=== PATIENT | female | born 1970 | race African-American/Black ===

== ENCOUNTER 2022-05-21 11:32 | Inpatient (IN) | payer OTHER, MEDICAID ==
[~2022-05-21] VITALS: Ht 157.5 cm; Wt 93.2 kg
[~2022-05-21 11:32] MED LIST: ALBU18HF2 IH; CARV12.545 MT; LISI2.5T47 MT; LJ2 IVP; MAGN296S73 MT; QUET400T MT; SIMV-43 PO
[2022-05-21] MEDS ORDERED: ASPIRIN 81MG TABLET PO ONE (12:15)
[2022-05-21 12:46] LABS: BASOPHILS % 0.6 % (0.0-2.0); EOSINOPHILS % 3.6 % (0.0-5.0); HEMATOCRIT. 36.2 % (36.0-48.0); HEMOGLOBIN. 11.6 g/dL (12.0-16.0); LYMPHOCYTES % 31.2 % (20.0-50.0); MEAN CORPUSCULAR HEMOGLOBIN 22.9 pg (28.0-32.0); MEAN CORPUSCULAR VOLUME 71.6 fL (81.0-99.0); MONOCYTES % 6.1 % (2.0-8.0); NEUTROPHILS % 58.5 % (40.0-76.0); PLATELET 267 x1000/uL (130-400); RED BLOOD CELL COUNT 5.05 mill/uL (4.2-5.4); RED CELL DISTRIBUTION WIDTH 17.1 % (11.6-14.6)
[2022-05-21] MEDS ORDERED: FUROSEMIDE 40MG/4ML VIAL IVP ONE (13:00)
[2022-05-21 13:10] LABS: CHLORIDE 107 mEq/L (98-107)
[2022-05-21] MEDS: NITROGLYCERIN 0.4MG TABLET SL SL PRN ×2 (13:28→13:29)
[2022-05-21] MEDS ORDERED: AZITHROMYCIN 500MG/250ML 250 ML IV ONE (14:30)
[2022-05-21] MEDS ORDERED: CEFTRIAXONE 1 G PREMIX 50 ML IV ONE (14:30)
[2022-05-21 15:16] LABS: D-DIMER 0.21 mg/L FEU (<0.50); PARTIAL THROMBOPLASTIN TIME 29.7 sec (23.4-31.0); PROTHROMBIN TIME 10.9 sec (9.6-11.0)
[2022-05-21 15:17] LABS: CLARITY URINE CLEAR (CLEAR); COLOR URINE YELLOW (YELLOW); KETONES URINE NEGATIVE (NEGATIVE); LEUKOCYTE ESTERASE URINE NEGATIVE (NEGATIVE); NITRITE URINE NEGATIVE (NEGATIVE); OCCULT BLOOD URINE NEGATIVE (NEGATIVE); PROTEIN URINE NEGATIVE (NEGATIVE); SPECIFIC GRAVITY URINE 1.006 (1.005-1.030); UROBILINOGEN URINE 0.2 E.U./dL (0.2-1.0)
[2022-05-21] MEDS ORDERED: MORPHINE SULFATE 4 MG/ML CPJ (NOT FOR IM USE) IV STA (16:55)
[2022-05-21] MEDS ORDERED: ONDANSETRON HCL 4MG/2ML INJ IV STA (16:55)
[2022-05-21] MEDS ORDERED: CEFTRIAXONE 1 G PREMIX 50 ML IV NR (18:30)
[2022-05-21 20:45] VITALS: BP 168/71
[2022-05-21] MEDS ORDERED: QUETIAPINE FUMARATE 50MG TABLET PO NR (23:30)
[2022-05-21] MEDS: HYDROCODONE/ACETAMINOPHEN 10/325MG TABLET PO PRN (23:53)
[2022-05-22] VITALS: BP 139/74
[2022-05-22 04:00] VITALS: BP 113/58
[2022-05-22] MEDS: ACETAMINOPHEN 325MG TABLET PO PRN ×2 (05:27→11:53)
[2022-05-22 06:57] LABS: CHLORIDE 107 mEq/L (98-107)
[2022-05-22 06:58] LABS: BASOPHILS % 0.3 % (0.0-2.0); EOSINOPHILS % 3.5 % (0.0-5.0); HEMATOCRIT. 33.9 % (36.0-48.0); HEMOGLOBIN. 10.7 g/dL (12.0-16.0); LYMPHOCYTES % 33.4 % (20.0-50.0); MEAN CORPUSCULAR VOLUME 72.6 fL (81.0-99.0); MEAN PLATELET VOLUME 8.1 fl (7.4-10.4); MONOCYTES % 6.6 % (2.0-8.0); NEUTROPHILS % 56.2 % (40.0-76.0); PLATELET 246 x1000/uL (130-400); RED BLOOD CELL COUNT 4.67 mill/uL (4.2-5.4); RED CELL DISTRIBUTION WIDTH 17.3 % (11.6-14.6)
[2022-05-22 07:04] LABS: HDL CHOLESTEROL 67 mg/dL (40-59); LDL CHOLESTEROL 155 mg/dL (5-100)
[2022-05-22 08:00] VITALS: BP 117/57
[2022-05-22] MEDS ORDERED: CARVEDILOL 12.5MG TABLET PO SCH (09:00)
[2022-05-22] MEDS: ENOXAPARIN 30MG/0.3ML SYR SUBCUT SCH ×2 (09:27→20:12)
[2022-05-22] MEDS: HYDROCODONE/ACETAMINOPHEN 10/325MG TABLET PO PRN ×2 (09:27→20:10)
[2022-05-22] MEDS ORDERED: POTASSIUM CHLORIDE 20MEQ TABLET SR PO NR (10:15)
[2022-05-22 12:00] VITALS: BP 119/69
[2022-05-22] MEDS: POTASSIUM CHLORIDE 20MEQ TABLET SR PO SCH (15:25)
[2022-05-22] MEDS: DILTIAZEM HCL 60MG TABLET PO SCH ×2 (15:25→21:20)
[2022-05-22] MEDS: FUROSEMIDE 40MG/4ML VIAL IVP SCH (15:25)
[2022-05-22 16:00] VITALS: BP 126/70
[2022-05-22] MEDS ORDERED: NALOXONE HCL 0.4MG/ML VIAL IV PRN (19:45)
[2022-05-22] MEDS ORDERED: IPRATROPIUM/ALBUTEROL 0.5-3(2.5)MG/3ML NEB HHN PRN (19:45)
[2022-05-22 20:00] VITALS: BP 114/83
[2022-05-22] MEDS: ATORVASTATIN CALCIUM 40MG TABLET PO SCH (20:08)
[2022-05-22] MEDS: QUETIAPINE FUMARATE 50MG TABLET PO SCH (20:09)
[2022-05-23] VITALS: BP 123/70
[2022-05-23 04:00] VITALS: BP 120/69
[2022-05-23] MEDS: DILTIAZEM HCL 60MG TABLET PO SCH ×3 (06:06→21:12)
[2022-05-23 07:58] VITALS: BP 138/67
[2022-05-23] MEDS: FUROSEMIDE 40MG/4ML VIAL IVP SCH (08:39)
[2022-05-23] MEDS: HYDROCODONE/ACETAMINOPHEN 10/325MG TABLET PO PRN ×3 (08:39→21:10)
[2022-05-23] MEDS: POTASSIUM CHLORIDE 20MEQ TABLET SR PO SCH (08:40)
[2022-05-23] MEDS: ENOXAPARIN 30MG/0.3ML SYR SUBCUT SCH ×2 (08:40→21:13)
[2022-05-23] MEDS: ONDANSETRON HCL 4MG/2ML INJ IV PRN (10:13)
[2022-05-23] MEDS: ACETAMINOPHEN 325MG TABLET PO PRN (11:32)
[2022-05-23 11:47] VITALS: BP 132/57
[2022-05-23 16:00] VITALS: BP 133/60
[2022-05-23] MEDS ORDERED: FUROSEMIDE 40MG/4ML VIAL IVP NR (16:45)
[2022-05-23 20:00] VITALS: BP 133/61
[2022-05-23] MEDS: ATORVASTATIN CALCIUM 40MG TABLET PO SCH (21:10)
[2022-05-23] MEDS: QUETIAPINE FUMARATE 50MG TABLET PO SCH (21:11)
[2022-05-24] VITALS: BP 127/58
[2022-05-24 04:00] VITALS: BP 138/66
[2022-05-24] MEDS: DILTIAZEM HCL 60MG TABLET PO SCH ×3 (06:00→20:51)
[2022-05-24 08:00] VITALS: BP 153/63
[2022-05-24 08:06] LABS: BASOPHILS % 0.3 % (0.0-2.0); EOSINOPHILS % 6.5 % (0.0-5.0); HEMATOCRIT. 40.1 % (36.0-48.0); LYMPHOCYTES % 39.9 % (20.0-50.0); MEAN CORPUSCULAR HEMOGLOBIN 23.4 pg (28.0-32.0); MEAN CORPUSCULAR VOLUME 72.4 fL (81.0-99.0); MEAN PLATELET VOLUME 7.8 fl (7.4-10.4); MONOCYTES % 8.5 % (2.0-8.0); NEUTROPHILS % 44.8 % (40.0-76.0); PLATELET 299 x1000/uL (130-400); RED BLOOD CELL COUNT 5.54 mill/uL (4.2-5.4); RED CELL DISTRIBUTION WIDTH 17.4 % (11.6-14.6)
[2022-05-24] MEDS: HYDROCODONE/ACETAMINOPHEN 10/325MG TABLET PO PRN ×2 (08:16→20:51)
[2022-05-24] MEDS: FUROSEMIDE 40MG/4ML VIAL IVP SCH (08:16)
[2022-05-24] MEDS: POTASSIUM CHLORIDE 20MEQ TABLET SR PO SCH (08:16)
[2022-05-24] MEDS: ENOXAPARIN 30MG/0.3ML SYR SUBCUT SCH ×2 (08:17→20:51)
[2022-05-24 12:00] VITALS: BP 145/78
[2022-05-24] MEDS ORDERED: LACTULOSE 20G/30ML UDC PO SCH (13:30)
[2022-05-24] MEDS ORDERED: DOCUSATE SODIUM 250MG CAPSULE PO SCH (13:30)
[2022-05-24 16:00] VITALS: BP 152/74
[2022-05-24 20:00] VITALS: BP 144/76
[2022-05-24] MEDS: ATORVASTATIN CALCIUM 40MG TABLET PO SCH (20:49)
[2022-05-24] MEDS: DOCUSATE SODIUM 250MG CAPSULE PO SCH (20:49)
[2022-05-24] MEDS: QUETIAPINE FUMARATE 50MG TABLET PO SCH (20:49)
[2022-05-25] VITALS (7 sets, daily range): BP systolic 131–195; BP diastolic 58–149
[2022-05-25] MEDS: DILTIAZEM HCL 60MG TABLET PO SCH ×3 (05:52→21:21)
[2022-05-25] MEDS ORDERED: REGADENOSON 0.4 MG/5 ML IV NR (08:30)
[2022-05-25] MEDS: DOCUSATE SODIUM 250MG CAPSULE PO SCH ×2 (08:56→17:41)
[2022-05-25] MEDS: FUROSEMIDE 40MG/4ML VIAL IVP SCH (08:57)
[2022-05-25] MEDS: POTASSIUM CHLORIDE 20MEQ TABLET SR PO SCH (08:58)
[2022-05-25] MEDS: ENOXAPARIN 30MG/0.3ML SYR SUBCUT SCH ×2 (08:58→20:12)
[2022-05-25] MEDS: HYDROCODONE/ACETAMINOPHEN 10/325MG TABLET PO PRN ×3 (09:13→21:18)
[2022-05-25] MEDS ORDERED: HYDRALAZINE 20MG/ML VIAL IV NR (11:30)
[2022-05-25] MEDS ORDERED: FURO-151 MT (11:55)
[2022-05-25] MEDS ORDERED: INDO50CA98 MT (11:55)
[2022-05-25] MEDS ORDERED: NA PHOS,M-B/NA PHOS,DI-BA ENEMA 118ML PR NR (16:00)
[2022-05-25] MEDS: INDOMETHACIN 25MG CAPSULE PO SCH (17:41)
[2022-05-25] MEDS: ACETAMINOPHEN 325MG TABLET PO PRN (17:42)
[2022-05-25] MEDS: QUETIAPINE FUMARATE 50MG TABLET PO SCH (20:11)
[2022-05-25] MEDS: ATORVASTATIN CALCIUM 40MG TABLET PO SCH (20:11)
[2022-05-25] MEDS: ONDANSETRON HCL 4MG/2ML INJ IV PRN (20:12)
[2022-05-26] VITALS: BP 136/61
[2022-05-26 04:00] VITALS: BP 127/83
[2022-05-26] MEDS: DILTIAZEM HCL 60MG TABLET PO SCH ×2 (05:19→15:56)
[2022-05-26 08:00] VITALS: BP 146/60
[2022-05-26] MEDS: DOCUSATE SODIUM 250MG CAPSULE PO SCH (08:47)
[2022-05-26] MEDS: POTASSIUM CHLORIDE 20MEQ TABLET SR PO SCH (08:47)
[2022-05-26] MEDS: FUROSEMIDE 40MG/4ML VIAL IVP SCH (08:47)
[2022-05-26] MEDS: INDOMETHACIN 25MG CAPSULE PO SCH (08:47)
[2022-05-26] MEDS: ENOXAPARIN 30MG/0.3ML SYR SUBCUT SCH (08:48)
[2022-05-26] MEDS: HYDROCODONE/ACETAMINOPHEN 10/325MG TABLET PO PRN (09:03)
[2022-05-26] MEDS ORDERED: LACTULOSE 20G/30ML UDC PO NR (11:30)
[2022-05-26] MEDS ORDERED: NA PHOS,M-B/NA PHOS,DI-BA ENEMA 118ML PR NR (11:30)
[2022-05-26 12:00] VITALS: BP 161/75
[2022-05-26] MEDS ORDERED: SORBITOL 70% SOLN 30ML PO NR (12:15)
[2022-05-26 16:00] VITALS: BP 150/78
[2022-05-26 16:39] VITALS: BP 161/75
== END 2022-05-26 17:55 | disposition home or self-care (01) | DRG 291 ==
LOC: ER 11:32 → 6WST 15:35 → EDBEDREQTM 15:41 → EDBEDREQ 15:41 → ENRESERV 19:46
PROVIDERS: ADMIT Internal Medicine; ATTEND Internal Medicine
DX: I11.0 Hypertensive heart disease with heart failure (principal); I50.33 Acute on chronic diastolic (congestive) heart failure; I31.39 Other pericardial effusion (noninflammatory); D86.9 Sarcoidosis, unspecified; I16.0 Hypertensive urgency; J44.9 Chronic obstructive pulmonary disease, unspecified; E78.5 Hyperlipidemia, unspecified; R07.89 Other chest pain; Z20.822 Contact with and (suspected) exposure to COVID-19; E66.01 Morbid (severe) obesity due to excess calories; I27.20 Pulmonary hypertension, unspecified; I25.10 Atherosclerotic heart disease of native coronary artery without angina pectoris; F17.210 Nicotine dependence, cigarettes, uncomplicated; Z87.442 Personal history of urinary calculi; Z68.37 Body mass index [BMI] 37.0-37.9, adult; Z79.899 Other long term (current) drug therapy; Z71.3 Dietary counseling and surveillance
CPT/HCPCS: 36415; 71045; 78452; 80048; 80053; 80061; 81003; 82962; 83605; 83880; 84484; 85025; 85379; 87426; 93005; 93017; 93306; 93970; 99285; A9500; C9803; J0360; J0456; J0696; J1650; J1940; J2270; J2405; J2785

== ENCOUNTER 2024-05-19 18:52 | Emergency (ER) | payer MEDICARE, MEDICAID ==
[~2024-05-19] VITALS: Ht 157.5 cm; Wt 94.0 kg
[~2024-05-19 18:52] MED LIST changes: +AMLO10TA80 PO; +ARIP10TA56 PO; +ASPI-1406 PO; +ATOR-2 PO; +CARV25TA47 PO; +FURO-151 MT; +IBUP-2028 MT; +INDO50CA98 MT; -LJ2 IVP; -MAGN296S73 MT; +MAGN296S91 MT; +NITR0.4T49 SL; +POTA-205 MT; +QUET300T20 PO; -QUET400T MT; -SIMV-43 PO
[2024-05-19 18:56] VITALS: O2SAT 95
[2024-05-19 19:04] VITALS: BP 167/95; PULSE 90; RESP 16; TEMP 98.5; O2SAT 100
[2024-05-19 20:42] LABS: BASOPHILS % 0.4 % (0.0-2.0); DIFFERENTIAL COMMENT 0; EOSINOPHILS % 2.5 % (0.0-5.0); HEMATOCRIT. 35.8 % (36.0-48.0); HEMOGLOBIN. 11.3 g/dL (12.0-16.0); LYMPHOCYTES % 34.7 % (20.0-50.0); MEAN CORPUSCULAR HEMOGLOBIN 23.6 pg (28.0-32.0); MEAN CORPUSCULAR HGB CONC 31.7 g/dL (31.0-37.0); MEAN CORPUSCULAR VOLUME 74.3 fL (81.0-99.0); MONOCYTES % 6.8 % (2.0-8.0); NEUTROPHILS % 55.6 % (40.0-76.0); PLATELET 275 x1000/uL (130-400); RED BLOOD CELL COUNT 4.82 mill/uL (4.2-5.4); WHITE BLOOD COUNT 5.7 x1000/uL (4.5-11.0)
[2024-05-19 20:46] LABS: CHLORIDE 109 mEq/L (98-107); POTASSIUM 3.7 mEq/L (3.5-5.1); SODIUM 140 mEq/L (136-145)
[2024-05-19 20:47] LABS: CARBON DIOXIDE 27 mEq/L (21-32)
[2024-05-19 20:48] LABS: CALCIUM 9.4 mg/dL (8.7-10.4)
[2024-05-19 20:52] LABS: CREATININE 1.1 mg/dL (0.6-1.0); GLUCOSE 94 mg/dL (70-105)
[2024-05-19 20:53] LABS: UREA NITROGEN BLOOD 12 mg/dL (9-23)
[2024-05-19 21:01] LABS: TROPONIN I HIGH SENSITIVITY < 4 ng/L (3.0-34)
== END 2024-05-19 22:20 | disposition left against medical advice (07) ==
LOC: ER 18:52
DX: R07.89 Other chest pain (principal); Z53.21 Procedure and treatment not carried out due to patient leaving prior to being seen by health care provider
CPT/HCPCS: 36415; 71045; 80048; 84484; 85025; 93005